=== PATIENT | male | born 1975 | race Caucasian/White ===

== ENCOUNTER 2020-03-25 02:27 | Emergency (ER) | payer BC ==
[~2020-03-25] VITALS: Ht 193 cm; Wt 93.0 kg
[2020-03-25 03:06] LABS: HEMOGLOBIN 14.7 gm/dL (14.0-18.0); MCHC 33.4 g/dL (28.0-37.0); MCV 92.8 fL (80.0-100.0); RBC 4.75 mil/uL (4.50-6.00); RDW 14.2 % (10.5-14.5); WBC 8.1 thou/uL (4.0-11.0)
[2020-03-25 03:07] LABS: URINE BILIRUBIN NEGATIVE (Negative); URINE BLOOD TRACE (Negative); URINE CLARITY CLEAR; URINE COLOR YELLOW; URINE GLUCOSE-RANDOM* NEGATIVE (Negative); URINE KETONES NEGATIVE (Negative); URINE LEUKOCYTES-REFLEX NEGATIVE (Negative); URINE NITRITE-REFLEX NEGATIVE (Negative); URINE PROTEIN (DIPSTICK) NEGATIVE (Negative); URINE SPECIFIC GRAVITY 1.025 (1.005-1.035); URINE UROBILINOGEN 0.2 E.U./dl (0.2-1.0)
[2020-03-25 03:08] LABS: ANION GAP 12 mmol/L (7-16); BUN 15 mg/dL (7-18); CALCIUM 9.3 mg/dL (8.5-10.1); CHLORIDE 102 mmol/L (98-107); CO2 25 mmol/L (21-32); CREATININE 1.2 mg/dL (0.7-1.3); GLUCOSE 102 mg/dL (74-106); POTASSIUM 3.8 mmol/L (3.5-5.1); SODIUM 139 mmol/L (136-145)
[2020-03-25 03:11] LABS: SALICYLATE < 2.8 mg/dL (2.8-20.0)
[2020-03-25 03:15] LABS: AMP/METHAMP Negative (Negative); BARBITURATES Negative (Negative); BENZODIAZEPINES Negative (Negative); COCAINE Negative (Negative); METHADONE Negative (Negative); OPIATES Negative (Negative); PCP Negative (Negative)
[2020-03-25 03:18] LABS: ALBUMIN 4.2 g/dL (3.4-5.0); DIRECT BILIRUBIN 0.3 mg/dL (<0.1-0.2); SGOT 24 U/L (15-37); SGPT 35 U/L (16-63); TOTAL BILIRUBIN 1.2 mg/dL (0.2-1.0); TOTAL PROTEIN 7.3 g/dL (6.4-8.2); TROPONIN-I <0.06 ng/mL (<0.06)
[2020-03-25] MEDS ORDERED: STRATTERA40 MG (03:40)
[2020-03-25] MEDS ORDERED: INDERAL 20 MG T20 M1 (03:41)
[2020-03-25] MEDS ORDERED: LITHIUM CARBON300 M3 PO (03:41)
[2020-03-25 05:51] VITALS: BP 164/101
--- NOTE | 2020-03-25 07:45 | EKG ---
[place] [address] [facility] [place] [address] ELECTROCARDIOGRAM REPORT Name: KATJA GARCIA Room #: DEP [facility] [id number] Admission: 03/25/20 Attend Phys: Discharge: 03/25/20 Date of : 73 Report #: [id number] [facility] ED Test Date: 2020-03-25 Test Time: 04:16:37 Pat Name: KATJA GARCIA Department: Room: Gender: M [employer]: [id number] : 1975 Requested By: Erik Walls Order Number: [id number] MD: Toñito Orona Measurements Intervals [place] Rate: 81 P: 43 TN: 147 QRS: 6 QRSD: 84 T: 26 QT: 384 QTc: 446 Interpretive Statements Sinus rhythm Baseline wander in lead(s) V2,V4 No previous ECG available for comparison Electronically Signed On 03-25-2020 7:45:46 [employer] by Toñito Orona [email or web address] <ELECTRONICALLY SIGNED> By: Toñito Orona MD, [facility] 03/25/20 0745 0416 0416 Toñito Orona MD, FACC /EPI
== END 2020-03-25 05:52 | disposition home or self-care (01) ==
LOC: ER 02:27
PROVIDERS: Emergency Medicine
DX: R41.82 Altered mental status, unspecified (principal); F90.9 Attention-deficit hyperactivity disorder, unspecified type; Z79.899 Other long term (current) drug therapy